=== PATIENT | male | born 1985 ===

== ENCOUNTER 2018-04-18 20:59 | Emergency (ER) | payer BC ==
--- NOTE | 2018-04-18 21:37 | C.PDOC ---
History Of Present Illness 33 year old male presents to the ED c/o dull, aching, cramping abdominal pain and constipation that started this morning. Patient reports eating some food in excess last night. Patient rates his pain at 4/10. Patient denies fever, chills , nausea, vomit, diarrhea, back pain. Time Seen by Provider: 04/18/18 21:37 Chief Complaint (Nursing): Abdominal Pain History Per: Patient History/Exam Limitations: no limitations Onset/Duration Of Symptoms: Hrs Current Symptoms Are (Timing): Still Present Context: Food Severity: Mild Pain Scale Rating Of: 4 Location Of Pain/Discomfort: Diffuse Radiation Of Pain To:: None Quality Of Discomfort: Dull, Aching, Cramping Associated Symptoms: Constipation. denies: Fever, Chills, Nausea, Vomiting, Diarrhea Alleviating Factors: None Recent travel outside of the [place]: No Additional History Per: Patient Past Medical History Reviewed: Historical Data, Nursing Documentation, Vital Signs Vital Signs: Last Vital Signs Temp 98.4 F 04/18/18 23:33 Pulse 62 04/18/18 23:33 Resp 17 04/18/18 23:33 BP 136/89 04/18/18 23:33 Pulse Ox 98 04/18/18 23:57 - Medical History PMH: Sleep Apnea Surgical History: No Surg Hx Family History: States: No Known Family Hx - Social History Hx Alcohol Use: No Hx Substance Use: No Review Of Systems Constitutional: Negative for: Fever, Chills Cardiovascular: Negative for: Chest Pain Respiratory: Negative for: Shortness of Breath Gastrointestinal: Positive for: Abdominal Pain, Constipation. Negative for: Nausea, Vomiting, Diarrhea Musculoskeletal: Negative for: Back Pain Neurological: Negative for: Weakness, Numbness Physical Exam - Physical Exam Appears: Non-toxic, No Acute Distress Skin: Warm, Dry Head: Normacephalic Eye(s): bilateral: Normal Inspection Oral Mucosa: Moist Neck: Supple Chest: Symmetrical Cardiovascular: Rhythm Regular Respiratory: No Rales, No Rhonchi, No Wheezing Gastrointestinal/Abdominal: Soft, Distention, No Guarding, No Rebound, Other ( tympanic to percussion ) Back: Normal Inspection Extremity: No Tenderness, No Swelling Extremity: Bilateral: Atraumatic, Normal Color And Temperature, Normal ROM Neurological/Psych: Oriented x3, Normal Speech Gait: Steady ED Course And Treatment - Laboratory Results Result Diagrams: 04/18/18 21:53 04/18/18 21:53 O2 Sat by Pulse Oximetry: 98 (ON RA) Pulse Ox Interpretation: Normal - CT Scan/US CT abd/pelvis Other Rad Studies (CT/US): Read By Radiologist, Radiology Report Reviewed CT/US Interpretation: FINDINGS: The liver, spleen, pancreas, kidneys, gallbladder are normal. The bowel appears normal. The base of the appendix is seen on coronal image 45 axial image 115. It is not well seen distally. No secondary signs of appendicitis. In the right pelvis, medial to the right iliac vessels/right psoas muscle, is a rounded 3 x 4 cm cystic. structure. It is bordered by the sigmoid colon anteriorly and the sacrum posteriorly. There is a small. amount of haziness in the adjacent fat. Possibilities include freestanding cyst, mesenteric cyst,. infected cyst, abscess, congenital cyst. Undescended testicle would be a consideration although. superiormost portion of a normal right testicle is identified within the scrotum. Although the cystic. structure is in close proximity to the iliac vessels and sacrum, it appears to be from the. adjacent structures by thin plane of fat making vascular and neurologic origin unlikely. IMPRESSION: Cystic structure within the right pelvis as discussed above. Thank you for allowing us to participate in the care of your patient. Dictated and Authenticated by: Stefanie Prescott MD. 04/18/2018 11:55 PM Eastern Time ([place] & [place]) Progress Note: Plan: - Labs. - IV fluids. - Toradol 30 mg IVP. - UA Reevaluation Time: 00:28 Reassessment Condition: Improved Disposition Counseled Patient/Family Regarding: Studies Performed, Diagnosis, Need For Followup, Rx Given - Disposition Referrals: [facility] [Outside] [facility] [Outside] Disposition: HOME/ ROUTINE Disposition Time: 21:37 Condition: FAIR Prescriptions: Polyethylene Glycol 3350 [Miralax] 17 gm PO DAILY #270 ml Instructions: Constipation, Child (DC) Forms: [facility] (Luxembourgish) - Clinical Impression Clinical Impression: Abdominal pain, Constipation - Scribe Statement The provider has reviewed the documentation as recorded by the Scribe Ashok Lee All medical record entries made by the Scribe were at my direction and personally dictated by me. I have reviewed the chart and agree that the record accurately reflects my personal performance of the history, physical exam, medical decision making, and the department course for this patient. I have also personally directed, reviewed, and agree with the discharge instructions and disposition.
[2018-04-18] MEDS ORDERED: Sodium Chloride 0.9% 1,000 ML IV ONE (21:42)
[2018-04-18 21:56] LABS: BASO # 0.1 K/uL (0.0-0.2); BASO % 0.5 % (0.0-2.0); EOS # 0.2 K/uL (0.0-0.7); EOS % 1.4 % (0.0-4.0); HEMOGLOBIN 15.3 g/dL (12.0-18.0); LYMPH # 3.5 K/uL (1.0-4.3); LYMPH % 26.1 % (20.0-40.0); MEAN CELL VOLUME 78.7 fL (80.0-94.0); MEAN CORPUSCULAR HEMOGLOBIN 26.3 pg (27.0-31.0); MEAN CORPUSCULAR HGB CONC 33.4 g/dL (33.0-37.0); MEAN PLATELET VOLUME 9.1 fL (7.2-11.7); MONO % 7.1 % (0.0-10.0); NEUT # 8.7 K/uL (1.8-7.0); NEUT % 64.9 % (50.0-75.0); RBC 5.83 Mil/uL (4.40-5.90); RED CELL DISTRIBUTION WIDTH 13.7 % (11.5-14.5); WHITE BLOOD COUNT 13.4 K/uL (4.8-10.8)
[2018-04-18 21:58] LABS: URINE BILIRUBIN NEGATIVE (NEGATIVE); URINE BLOOD NEGATIVE (NEGATIVE); URINE CLARITY Clear (Clear); URINE COLOR Straw (YELLOW); URINE GLUCOSE (UA) NORMAL (Normal); URINE LEUKOCYTE ESTERASE NEG Leu/uL (Negative); URINE PROTEIN NEGATIVE (NEGATIVE); URINE UROBILINOGEN NORMAL mg/dL (0.2-1.0)
[2018-04-18 22:04] LABS: INR 1.2; PROTHROMBIN TIME 13.5 SECONDS (9.7-12.2)
[2018-04-18 22:08] LABS: ALB/GLOB RATIO 1.6 (1.0-2.1); ALT/SGPT 43 U/L (21-72); AST/SGOT 30 U/L (17-59); BLOOD UREA NITROGEN 8 mg/dL (9-20); GFR AFRICAN-AMERICAN > 60; GFR NON-AFRICAN AMERICAN > 60; LIPASE 59 U/L (23-300)
[2018-04-18] MEDS ORDERED: Iodixanol 320 MG/ML 100 ML BOTTLE IV ONE (22:33)
[2018-04-18 23:34] VITALS: BP 136/89; PULSE 62; RESP 17; TEMP 98.4
[2018-04-18 23:57] VITALS: O2SAT 98
--- NOTE | 2018-04-19 09:01 | CT ---
CT abdomen and pelvis History: Diffuse abdominal pain. Comparison: None available. Technique: Multiple contiguous axial images were performed through the abdomen and pelvis with the use of intravenous contrast. Subsequently, sagittal and coronal reformatted images were obtained. This CT exam was performed using one or more of the following dose reduction techniques: Automated exposure control, adjustment of the mA and/or kV according to patient size, and/or use of iterative reconstruction technique. Findings: Lung bases are clear. No pleural or pericardial effusion. Mild fatty infiltration of the liver. Contracted gallbladder. Spleen is preserved. Adrenal glands are preserved. Pancreas is preserved. Upper abdominal bowel is preserved. Right kidney: No calculi or hydronephrosis. Left Kidney: No calculi or hydronephrosis. Urinary bladder is grossly preserved. Prostate is preserved. Underdistended sigmoid colon. Fecal retention in the colon. Under distended and or mildly thickened proximal and mid transverse colon. Clinical correlation. Appendix not well visualized. In the right pelvis, medial to the right iliac vessels/right soleus muscle, there is a 4.5 x 3.0 centimeter ovoid cystic structure/lesion. It is bordered by the sigmoid colon anteriorly and the sacrum posteriorly. Small amount of haziness in the adjacent fat. Possibilities include a freestanding cyst versus mesenteric cyst versus infected cyst versus abscess versus congenital cyst versus additional etiology. Undescended testicle would be consideration although superior most portion of a normal right testicle is identified within the scrotum. Additional etiologies not excluded. Clinical correlation. Impression: In the right pelvis, medial to the right iliac vessels/right soleus muscle, there is a 4.5 x 3.0 centimeter ovoid cystic structure/lesion. It is bordered by the sigmoid colon anteriorly and the sacrum posteriorly. Small amount of haziness in the adjacent fat. Possibilities include a freestanding cyst versus mesenteric cyst versus infected cyst versus abscess versus congenital cyst versus additional etiology. Undescended testicle would be consideration although superior most portion of a normal right testicle is identified within the scrotum. Additional etiologies not excluded. Clinical correlation. Additional findings as above. These findings were preliminarily reported at 11:55 p.m. on 04/18/[address] Stefanie Prescott from [employer].
== END 2018-04-19 00:51 | disposition home or self-care (01) ==
LOC: C.ER 20:59
DX: R10.9 Unspecified abdominal pain (principal); K59.00 Constipation, unspecified
CPT/HCPCS: 74177; 80053; 81001; 83690; 85025; 85610; 85730; 96374; 99285; J1885; J7030; Q9967

== ENCOUNTER 2018-04-21 10:18 | Inpatient (IN) | payer BC ==
[2018-04-21 10:26] VITALS: BMI 26.2
[2018-04-21] MEDS ORDERED: Sodium Chloride 0.9% 1,000 ML IV ONE ×2 (10:32→22:00)
--- NOTE | 2018-04-21 10:34 | C.PDOC ---
History Of Present Illness 33 y/o male presents to ED sent by Dr. Azevedo for further evaluation of right sided abdominal pain and possible surgery. Patient states he has been taking Motrin for pain with mild relief and reports diffuse body rash. Patient denies fever, nausea, vomiting, diarrhea or any other complaints at this time. Time Seen by Provider: 04/21/18 10:32 Chief Complaint (Nursing): Abdominal Pain History Per: Patient History/Exam Limitations: no limitations Onset/Duration Of Symptoms: Days Current Symptoms Are (Timing): Still Present Location Of Pain/Discomfort: RLQ Past Medical History Reviewed: Historical Data, Nursing Documentation, Vital Signs Vital Signs: Last Vital Signs Temp 98.5 F 04/21/18 15:45 Pulse 76 04/21/18 15:45 Resp 18 04/21/18 15:45 BP 147/91 H 04/21/18 15:45 Pulse Ox 98 04/21/18 15:45 - Medical History PMH: Sleep Apnea Surgical History: No Surg Hx Family History: States: No Known Family Hx - Social History Hx Alcohol Use: No Hx Substance Use: No - Immunization History Hx Tetanus Toxoid Vaccination: No Hx Influenza Vaccination: No Hx Pneumococcal Vaccination: No Review Of Systems Constitutional: Negative for: Fever, Chills Gastrointestinal: Positive for: Abdominal Pain. Negative for: Nausea, Vomiting , Diarrhea Genitourinary: Negative for: Dysuria, Hematuria Skin: Negative for: Rash Physical Exam - Physical Exam Appears: Non-toxic, No Acute Distress Skin: Warm, Dry, No Rash Head: Atraumatic, Normacephalic Eye(s): bilateral: Normal Inspection Oral Mucosa: Moist Neck: Normal ROM, Supple Cardiovascular: Rhythm Regular Respiratory: Normal Breath Sounds, No Rales, No Rhonchi, No Wheezing Gastrointestinal/Abdominal: Soft, Tenderness (RLQ), No Guarding, No Rebound Back: No CVA Tenderness, No Paraspinal Tenderness Neurological/Psych: Oriented x3, Normal Speech ED Course And Treatment - Laboratory Results Result Diagrams: 04/21/18 10:57 04/21/18 10:57 Lab Interpretation: Normal ECG: Interpreted By Me ECG Rhythm: Sinus Rhythm ECG Interpretation: Normal Rate From EC O2 Sat by Pulse Oximetry: 100 (RA) Pulse Ox Interpretation: Normal Progress Note: Treated with IVF NSS. Patient treated with benadryl 25 mg IV for hives. Case discussed with vice president for philanthropy who request admission Reassessment Condition: Improved - Physician Consult Information Physician Contacted: Cameron Azevedo Outcome Of Conversation: admit Disposition Discussed With DrJad: Cameron Azevedo Doctor Will See Patient In The: Hospital - Disposition Disposition: HOSPITALIZED Disposition Time: 12:00 Condition: STABLE - POA Present On Arrival: None - Clinical Impression Clinical Impression: Abdominal pain - PA / [employer] / Resident Statement MD/DO has reviewed & agrees with the documentation as recorded. - Scribe Statement The provider has reviewed the documentation as recorded by the Scribe Kellen Carrillo All medical record entries made by the Karie were at my direction and personally dictated by me. I have reviewed the chart and agree that the record accurately reflects my personal performance of the history, physical exam, medical decision making, and the department course for this patient. I have also personally directed, reviewed, and agree with the discharge instructions and disposition. Decision To Admit - Pt Status Changed To: Hospital Disposition Of: Inpatient - Admit Certification Admit to Inpatient:: After my assessment, the patient will require hospitalization for at least two midnights. This is because of the severity of symptoms shown, intensity of services needed, and/or the medical risk in this patient being treated as an outpatient. - InPatient: Physician Admission Certification:: Abdominal Pain - . Bed Request Type: Regular Admitting Physician: Cameron Azevedo Patient Diagnosis: Abdominal pain
[2018-04-21] MEDS ORDERED: Sodium Chloride 0.9% 1,000 ML ONE (11:03)
[2018-04-21 11:05] LABS: BASO % 0.5 % (0.0-2.0); EOS # 0.3 K/uL (0.0-0.7); EOS % 3.1 % (0.0-4.0); HEMOGLOBIN 15.4 g/dL (12.0-18.0); LYMPH # 1.7 K/uL (1.0-4.3); LYMPH % 18.2 % (20.0-40.0); MEAN CELL VOLUME 79.6 fL (80.0-94.0); MEAN CORPUSCULAR HEMOGLOBIN 26.6 pg (27.0-31.0); MEAN CORPUSCULAR HGB CONC 33.4 g/dL (33.0-37.0); MONO # 0.7 K/uL (0.0-0.8); MONO % 6.9 % (0.0-10.0); NEUT # 6.8 K/uL (1.8-7.0); NEUT % 71.3 % (50.0-75.0); NRBC % 0.1 % (0.0-2.0); RBC 5.78 Mil/uL (4.40-5.90); RED CELL DISTRIBUTION WIDTH 13.7 % (11.5-14.5); WHITE BLOOD COUNT 9.5 K/uL (4.8-10.8)
[2018-04-21 11:08] LABS: URINE BILIRUBIN NEGATIVE (NEGATIVE); URINE BLOOD NEGATIVE (NEGATIVE); URINE CLARITY Clear (Clear); URINE COLOR Yellow (YELLOW); URINE GLUCOSE (UA) NORMAL (Normal); URINE LEUKOCYTE ESTERASE NEG Leu/uL (Negative); URINE PROTEIN NEGATIVE (NEGATIVE); URINE UROBILINOGEN NORMAL mg/dL (0.2-1.0)
--- NOTE | 2018-04-21 11:12 | RAD ---
HISTORY: SOB COMPARISON: No prior. TECHNIQUE: Chest PA and lateral FINDINGS: LUNGS: No active pulmonary disease. PLEURA: No significant pleural effusion identified. No pneumothorax apparent. CARDIOVASCULAR: Normal. OSSEOUS STRUCTURES: No significant abnormalities. VISUALIZED UPPER ABDOMEN: Normal. OTHER FINDINGS: None. IMPRESSION: No active disease.
[2018-04-21 11:14] LABS: INR 1.3; PROTHROMBIN TIME 13.7 SECONDS (9.7-12.2)
[2018-04-21 11:18] LABS: ALB/GLOB RATIO 1.5 (1.0-2.1); ALBUMIN 4.8 g/dL (3.5-5.0); ALT/SGPT 33 U/L (21-72); AST/SGOT 22 U/L (17-59); BLOOD UREA NITROGEN 10 mg/dL (9-20); CALCIUM 9.7 mg/dl (8.6-10.4); GFR AFRICAN-AMERICAN > 60; GFR NON-AFRICAN AMERICAN > 60
[2018-04-21] MEDS ORDERED: DiphenhydrAMINE 50 mg/ml Inj IVP STA (11:39)
[2018-04-21] MEDS ORDERED: DiphenhydrAMINE 50 mg/ml Inj ONE ×2 (12:15→18:49)
[2018-04-21] MEDS ORDERED: Sodium Chloride 0.9% 1,000 ML IV SCH (14:00)
--- NOTE | 2018-04-21 16:58 | CP.PCM.HP ---
<Shannen Sweeney - Last Filed: 04/21/18 16:54> History of Present Illness - History of Present Illness History of Present Illness: H & P 33 M w PMH of sleep apnea came with RLQ pain. He reports pain started on thursday and came to ED. Pain was sudden onset and localized. Denies fever, nausea , vomiting, diarrhea, CP, SOB, change in stool caliber, Sick contact, recent travel, hematochezia, hematemesis, dysuria, hematura. CT was taken and it showed possible mesenteric cyst or abscess on RLQ. Pt reports constipation and reports taking naproxen for pain. Didn't relieve pain. Pain was worsen on Thursday. Pt went to see his PMD and recommended to see Dr. Azevedo. Today pain became more intense and frequent and came back to ED. Pt is consented for OR for diagnostic laparoscopy. PMH sleep apnea PSH none SS lives with family, denies smoking, etoh or drug abuse. Present on Admission - Present on Admission Any Indicators Present on Admission: No Review of Systems - Review of Systems Review of Systems: See HPI Past Patient History - Past Medical History & Family History Past Medical History?: Yes - Past Social History Smoking Status: Former Smoker - CARDIAC Hx Cardiac Disorders: No - PULMONARY Hx Sleep Apnea: Yes - NEUROLOGICAL Hx Neurological Disorder: No - HEENT Hx HEENT Problems: No - RENAL Hx Chronic Kidney Disease: No - ENDOCRINE/METABOLIC Hx Endocrine Disorders: No - HEMATOLOGICAL/ONCOLOGICAL Hx Blood Disorders: No - INTEGUMENTARY Hx Dermatological Problems: No - MUSCULOSKELETAL/RHEUMATOLOGICAL Hx Musculoskeletal Disorders: No Hx Falls: No - GASTROINTESTINAL Other/Comment: right sided Abdominal Pain possible cyst vs infected cyst vs abscess - GENITOURINARY/GYNECOLOGICAL Hx Genitourinary Disorders: No - PSYCHIATRIC Hx Psychophysiologic Disorder: No Hx Substance Use: No - SURGICAL HISTORY Hx Surgeries: No - ANESTHESIA Hx Anesthesia: No Meds Allergies/Adverse Reactions: Allergies Allergy/AdvReac Type Severity Reaction Status Date / Time No Known Allergies Allergy Verified 04/21/18 10:22 Physical Exam - Constitutional Appears: No Acute Distress - Head Exam Head Exam: ATRAUMATIC, NORMAL INSPECTION, NORMOCEPHALIC - Eye Exam Eye Exam: EOMI, Normal appearance, PERRL Pupil Exam: NORMAL ACCOMODATION, PERRL - ENT Exam ENT Exam: Mucous Membranes Moist, Normal Exam - Neck Exam Neck exam: Positive for: Normal Inspection - Respiratory Exam Respiratory Exam: NORMAL BREATHING PATTERN - Cardiovascular Exam Cardiovascular Exam: REGULAR RHYTHM. absent: Tachycardia - GI/Abdominal Exam GI & Abdominal Exam: Normal Bowel Sounds, Soft, Tenderness. absent: Distended, Firm, Guarding, Hernia, Mass, Organomegaly, Pulsatile Mass, Rebound, Rigid Additional comments: RLQ TTP - Exam Exam: NORMAL INSPECTION - Extremities Exam Extremities exam: Positive for: full ROM, normal inspection - Back Exam Back exam: NORMAL INSPECTION - Neurological Exam Neurological exam: Alert, CN II-XII Intact, Normal Gait, Oriented x3, Reflexes Normal - Psychiatric Exam Psychiatric exam: Normal Affect, Normal Mood - Skin Skin Exam: Dry, Intact, Normal Color, Warm Results - Vital Signs Recent Vital Signs: Last Vital Signs Temp 98.5 F 04/21/18 15:45 Pulse 76 04/21/18 15:45 Resp 18 04/21/18 15:45 BP 147/91 H 04/21/18 15:45 Pulse Ox 98 04/21/18 15:45 - Labs Result Diagrams: 04/21/18 10:57 04/21/18 10:57 Labs: Laboratory Results - last 24 hr 04/21/18 04/21/18 04/21/18 10:57 10:57 10:57 WBC 9.5 RBC 5.78 Hgb 15.4 Hct 46.0 MCV 79.6 L MCH 26.6 L MCHC 33.4 RDW 13.7 Plt Count 263 MPV 9.0 Neut % (Auto) 71.3 Lymph % (Auto) 18.2 L [place] % (Auto) 6.9 Eos % (Auto) 3.1 Baso % (Auto) 0.5 Neut # (Auto) 6.8 Lymph # (Auto) 1.7 [place] # (Auto) 0.7 Eos # (Auto) 0.3 Baso # (Auto) 0.0 PT 13.7 H INR 1.3 APTT 46 H Sodium 142 Potassium 4.0 Chloride 102 Carbon Dioxide 27 Anion Gap 17 BUN 10 Creatinine 1.0 Est GFR ( Amer) > 60 Est GFR (Non-Af Amer) > 60 Random Glucose 109 Calcium 9.7 Total Bilirubin 1.2 AST 22 ALT 33 Alkaline Phosphatase 78 Total Protein 8.0 Albumin 4.8 Globulin 3.2 Albumin/Globulin Ratio 1.5 Urine Color Urine Clarity Urine pH Ur Specific [place] Urine Protein Urine Glucose (UA) Urine Ketones Urine Blood Urine Nitrate Urine Bilirubin Urine Urobilinogen Ur Leukocyte Esterase Urine WBC (Auto) Blood Type Antibody Screen 04/21/18 04/21/18 10:57 10:57 WBC RBC Hgb Hct MCV MCH MCHC RDW Plt Count MPV Neut % (Auto) Lymph % (Auto) [place] % (Auto) Eos % (Auto) Baso % (Auto) Neut # (Auto) Lymph # (Auto) [place] # (Auto) Eos # (Auto) Baso # (Auto) PT INR APTT Sodium Potassium Chloride Carbon Dioxide Anion Gap BUN Creatinine Est GFR ( Amer) Est GFR (Non-Af Amer) Random Glucose Calcium Total Bilirubin AST ALT Alkaline Phosphatase Total Protein Albumin Globulin Albumin/Globulin Ratio Urine Color Yellow Urine Clarity Clear Urine pH 6.0 Ur Specific [place] 1.008 Urine Protein Negative Urine Glucose (UA) Normal Urine Ketones Negative Urine Blood Negative Urine Nitrate Negative Urine Bilirubin Negative Urine Urobilinogen Normal Ur Leukocyte Esterase Neg Urine WBC (Auto) < 1 Blood Type O POSITIVE Antibody Screen Negative Assessment & Plan - Assessment and Plan (Free Text) Assessment: RLQ and possible mesenteric cyst on CT -OR for diagnostic laparoscopy NPO IVF Pain control DW Dr. Azevedo <Cameron Azevedo - Last Filed: 04/25/18 20:06> Results - Vital Signs Recent Vital Signs: Last Vital Signs Temp 97.8 F 04/23/18 07:00 Pulse 75 04/23/18 07:00 Resp 20 04/23/18 07:00 BP 118/77 04/23/18 07:00 Pulse Ox 96 04/23/18 07:00 - Labs Result Diagrams: 04/23/18 06:19 04/23/18 06:19 Attending/Attestation - Attestation I have personally seen and examined this patient.: Yes I have fully participated in the care of the patient.: Yes I have reviewed all pertinent clinical information: Yes Notes (Text): Pt was seen and examined at bedside Agree with above note and assessment Pt with RLQ pain and tenderness Labs and radiology reviewed Ass: Infected pelvic cyst possible Appendicitis Plan : OR for Lap Exploration and Appendectomy Consent NPO, IVF C/W IV antibiotics c.w current mx Plan d.w pt in detail Risk and benefit explained in detail
[2018-04-21] MEDS ORDERED: ceFAZolin IV 1 gm in Dextrose 2 GM/100 ML BAG IVPB ONE (17:36)
[2018-04-21] MEDS ORDERED: Lidocaine/Epinephrine 1% 1:100000 10 ML IJ ONE (17:37)
[2018-04-21] MEDS ORDERED: Midazolam 2 MG/2 ML VIAL ONE (18:26)
[2018-04-21] MEDS ORDERED: Propofol 10 mg/ml Inj (20 ML) ONE (18:26)
[2018-04-21] MEDS ORDERED: Rocuronium 10 mg/ml (5 ml) ONE (18:49)
[2018-04-21] MEDS ORDERED: Lidocaine 4% (Laryng-O-Jet) Kit MM ONE (18:49)
[2018-04-21] MEDS ORDERED: HYDROmorphone 0.5 mg/0.5 ml ISec IVP PRN (20:56)
[2018-04-21] MEDS ORDERED: Lactated Ringer's 1,000 ML IV ONE ×2 (21:12)
--- NOTE | 2018-04-21 21:31 | PCM.SURG1 ---
Surgeon's Initial Post Op Note - Surgeon's Notes Surgeon: Dr. Azevedo Fiber Optic Splicer: Shannen Sweeney PGY2 Kaylynn Type of Anesthesia: General Endo, Local Anesthesia Administered By: Alida Pre-Operative Diagnosis: Pelvic mass Operative Findings: Pelvic abscess [id number] adjacent to R iliac artery Post-Operative Diagnosis: R pelvic abscess Operation Performed: Exploratory laparoscopy, appendectomy, Deroofing of the abcess cavity wall Specimen/Specimens Removed: abscess, abscess cavitary wall, Estimated Blood Loss: EBL {In ML}: 50 Drains Used: [place] Post-Op Condition: Good Date of Surgery/Procedure: 04/21/18 Time of Surgery/Procedure: 21:31
[2018-04-21] MEDS: Piperacill/Tazo 3.375gm in Dex 3.375 GM/50 ML BAG IVPB SCH ×2 (21:44→23:27)
--- NOTE | 2018-04-22 05:19 | CON ---
DATE: 04/21/2018 HISTORY OF PRESENT ILLNESS: The patient is seen on an emergency consultation basis at the request of Dr. Azevedo in the operating room at [facility] because of a pelvic cyst, and there was a concern that this may represent an aneurysm. I responded as soon as possible. The operative findings and the screens were reviewed with Dr. Azevedo. The CT and other imaging tests, that have been done, were also reviewed. Basically, it appears that there was a cyst in the pelvis. This does not appear to be part of the iliac artery or the iliac vein, as there is no contrast . The reports from the different radiologists interpreting the studies are also reviewed. PHYSICAL EXAMINATION: GENITOURINARY: The patient has a fairly well-defined right pelvic wall cyst. This was aspirated with the removal of sand-colored fluid which was sent for cytologic examination and for bacteriology. In addition, the cyst was then unroofed. Dr. Azevedo had already carefully dissected at the ureter and made it clear that there was no ureteral involvement. My impression is this is a pelvic cyst. It is not an aneurysm. It is not related to the vascular system as a main blood vessel. RECOMMENDATION: I exactly go with what Dr. Azevedo did. The other option of course would be an open invasion. , and I think it could be just as the plan to unroof it and drain this, so I agree with the recommendation as management if there is a long appendix right over the area and I think that this should be removed and this is reviewed with the staff. IMPRESSION: Pelvic cyst, nonvascular structure. The skin will be removed or unroofed as planned. I concur with the recommendations. Erick Deshpande Jr., MD
[2018-04-22] MEDS: Piperacill/Tazo 3.375gm in Dex 3.375 GM/50 ML BAG IVPB SCH ×3 (06:22→21:48)
[2018-04-22 07:10] LABS: BASO % 0.2 % (0.0-2.0); HEMOGLOBIN 14.5 g/dL (12.0-18.0); LYMPH % 9.2 % (20.0-40.0); MEAN CELL VOLUME 80.1 fL (80.0-94.0); MEAN CORPUSCULAR HEMOGLOBIN 26.9 pg (27.0-31.0); MEAN CORPUSCULAR HGB CONC 33.5 g/dL (33.0-37.0); MEAN PLATELET VOLUME 9.2 fL (7.2-11.7); MONO # 0.5 K/uL (0.0-0.8); MONO % 4.2 % (0.0-10.0); NEUT # 9.3 K/uL (1.8-7.0); NEUT % 86.4 % (50.0-75.0); PLATELET COUNT 280 K/uL (130-400); RED CELL DISTRIBUTION WIDTH 13.5 % (11.5-14.5); WHITE BLOOD COUNT 10.7 K/uL (4.8-10.8)
[2018-04-22 07:25] LABS: ALB/GLOB RATIO 1.6 (1.0-2.1); ALBUMIN 4.4 g/dL (3.5-5.0); ALT/SGPT 32 U/L (21-72); AST/SGOT 31 U/L (17-59); BLOOD UREA NITROGEN 12 mg/dL (9-20); CALCIUM 9.2 mg/dl (8.6-10.4); GFR AFRICAN-AMERICAN > 60; GFR NON-AFRICAN AMERICAN > 60
[2018-04-22 08:35] LABS: BANDS 6 % (0-2); LYMPHOCYTE 11 % (20-40); MONOCYTE 4 % (0-10); NEUTROPHIL 79 % (50-75); PLATELET ESTIMATE NORMAL (NORMAL); TOTAL CELLS COUNTED 100
[2018-04-22 08:36] LABS: OVALOCYTES SLIGHT
[2018-04-22] MEDS: Enoxaparin 30 mg Syringe SC SCH (09:13)
[2018-04-22] MEDS: HYDROmorphone 0.5 mg/0.5 ml ISec IVP PRN ×2 (13:10→20:14)
--- NOTE | 2018-04-22 16:46 | CP.PCM.PN ---
<Josiah Wolff - Last Filed: 04/22/18 16:43> Subjective - Date & Time of Evaluation Date of Evaluation: 04/22/18 Time of Evaluation: 16:43 - Subjective Subjective: General Surgery Progress Note for Dr. Azevedo This 33M was seen and examined this Am at bedside. Reporting abdominal pain when he gets out of bed. Requesting another day due to pain control. Passing gas no BM. Denies chest pain or SOB. Objective - Vital Signs/Intake and Output Vital Signs (last 24 hours): Temp Pulse Resp BP Pulse Ox 98.1 F 84 18 121/76 98 04/22/18 15:30 04/22/18 15:30 04/22/18 15:30 04/22/18 15:30 04/22/18 15:30 Intake and Output: 04/22/18 04/22/18 06:59 18:59 Intake Total 480 Output Total 685 Balance -685 480 - Medications Medications: Current Medications Acetaminophen (Tylenol 325mg Tab) 975 mg PO Q6 PRN PRN Reason: Fever >100.4 F Enoxaparin Sodium (Lovenox) 30 mg SC DAILY [facility] Last Admin: 04/22/18 09:13 Dose: 30 mg Hydromorphone HCl (Dilaudid) 0.5 mg IVP Q4H PRN PRN Reason: Pain, moderate (4-7) Last Admin: 04/22/18 13:10 Dose: 0.5 mg Piperacillin Sod/Tazobactam Sod (Zosyn 3.375 Gm Iv Premix) 3.375 gm in 50 mls @ 200 mls/hr IVPB Q8H LIS[place]TE PRN Reason: Protocol Last Admin: 04/22/18 13:02 Dose: 200 mls/hr Ondansetron HCl (Zofran Inj) 4 mg IVP Q4 PRN PRN Reason: Nausea/Vomiting Last Admin: 04/22/18 13:10 Dose: 4 mg - Labs Labs: 04/22/18 06:53 04/22/18 06:53 PT 13.7 SECONDS (9.7-12.2) H 04/21/18 10:57 INR 1.3 04/21/18 10:57 APTT 46 SECONDS (21-34) H 04/21/18 10:57 - Constitutional Appears: Non-toxic, No Acute Distress - Head Exam Head Exam: ATRAUMATIC, NORMOCEPHALIC - Eye Exam Eye Exam: EOMI - ENT Exam ENT Exam: Mucous Membranes Moist - Respiratory Exam Respiratory Exam: NORMAL BREATHING PATTERN - Cardiovascular Exam Cardiovascular Exam: +S1, +S2 - GI/Abdominal Exam GI & Abdominal Exam: Soft. absent: Distended, Firm, Guarding, Rigid, Tenderness Additional comments: Dressing clean dry and intact - Neurological Exam Neurological Exam: Alert, Awake - Psychiatric Exam Psychiatric exam: Normal Affect, Normal Mood - Skin Skin Exam: Dry, Intact Assessment and Plan - Assessment and Plan (Free Text) Assessment: 33M s/o lap unroofing of pelvic abscess and appendectomy Plan: d/c rodriguez CLD Continue ABX Continue DVT ppx Will re-examine further recs per Dr. Roberto Carlos Wolff PGY2 <Cameron Azevedo - Last Filed: 04/25/18 20:16> Objective - Vital Signs/Intake and Output Vital Signs (last 24 hours): Temp Pulse Resp BP Pulse Ox 97.8 F 75 20 118/77 96 04/23/18 07:00 04/23/18 07:00 04/23/18 07:00 04/23/18 07:00 04/23/18 07:00 - Labs Labs: 04/23/18 06:19 04/23/18 06:19 PT 13.7 SECONDS (9.7-12.2) H 04/21/18 10:57 INR 1.3 04/21/18 10:57 APTT 46 SECONDS (21-34) H 04/21/18 10:57 Attending/Attestation - Attestation I have personally seen and examined this patient.: Yes I have fully participated in the care of the patient.: Yes I have reviewed all pertinent clinical information, including history, physical exam and plan: Yes Notes (Text): Pt was seen and examined at bedside Agree with above note and assessment Pt is improving clinically Reg diet Enema prn C/W IV antibiotics c.w current mx Plan d.w pt in detail Risk and benefit explained in detail
[2018-04-23 01:43] VITALS: PULSE 75; RESP 20
--- NOTE | 2018-04-23 04:58 | OP ---
PROCEDURE DATE: 04/21/2018 PREOPERATIVE DIAGNOSES: 1. Lower abdominal pain. 2. Large pelvic infected cyst. 3. Possible appendicitis. POSTOPERATIVE DIAGNOSES: 1. Infected extraperitoneal large pelvic cyst. 2. Enlarged and long appendix. PROCEDURES DONE: 1. Laparoscopic drainage of pelvic abscess. 2. Laparoscopic pelvic cystectomy, partial. 3. Laparoscopic appendectomy. 4. Laparoscopic extensive lysis of adhesion and enterolysis. 5. Laparoscopic Ureterolysis and mobilization of colon SURGEON: Cameron Azevedo MD ARM MAKER: TAMARA Graves SECOND ARM MAKER: Chacha PGY-2 resident ANESTHESIA: General endotracheal tube anesthesia. ESTIMATED BLOOD LOSS: Around 20 mL. DRAIN: None. PATHOLOGY: 1. The pus was sent for the culture and sensitivity. 2. The cyst wall was also sent for the permanent pathology. 3. Appendix was sent for the permanent pathology. COMPLICATIONS: None. INTRAOPERATIVE FINDINGS: The patient had a large pelvic cyst that was attached to the left iliac vein as well as the left pelvic wall, and the patient also had enlarged and long appendix. DESCRIPTION OF PROCEDURE: On intraoperative steps, this is a 33-year-old male who was diagnosed with infected pelvic cyst with possible appendicitis. The patient had severe abdominal pain. The patient was consented for laparoscopic pelvic exploration with possible appendectomy and possible bowel resection. Then, the patient was brought to the OR, placed supine on the operating room table. After induction of the anesthesia, abdomen was prepped and draped in the usual sterile fashion, and the supraumbilical transverse incision was made after incising skin, subcutaneous tissue and the fascia. The Enrique port was placed, pneumo was created. A 12-mm port was placed in the left lower quadrant, and a 5-mm port was placed in the suprapubic region. After that, grasper and dissector were introduced, and the pelvic exploration was done. The patient had extensive adhesion in the pelvis, and first laparoscopic extensive lysis of adhesion was done. The omentum was firmly adhesed to the pelvic cyst wall, and that was also lysed. After that, the large pelvic cyst was identified in the pelvis. The peritoneal dissection was done to dissect the ureter from the pelvic cyst. Mobilization of right colon was done to identify normal analtomay The appendix was also thickened and enlarged and extremely long. After proper exploration, due to the connectivity of the cyst to the right iliac vein, the intraoperative vascular consult was called by Dr. Deshpande, and Dr. Deshpande came to the operating room and advised about the cyst. There was no apparent aneurysm identified. Now, the cyst was aspirated, and the pus was sent for the culture and sensitivity as well as the pus sent for the tumor markers. The cyst wall was excised and almost 30% to 40% of cyst wall that was attached to the right iliac vein was left. The rest of the cyst was sent off the table for pathology. After proper hemostasis of the cyst wall area, now the mesoappendix was resected. The appendix was resected with the MAURICIO, and it was sent off the table for pathology. There was no apparent complication. Due to the extensive nature of the disease, this took approximately 60-80 minutes extra for the routine procedure. All the ports were taken out under vision, pneumo was deflated. The umbilical port site was closed in 2 layers, the fascia with 0 Vicryl interrupted sutures, skin with 4-0 Monocryl, and dry sterile dressing was applied. The patient tolerated the procedure well. Count of instruments and gauze was correct. There was no apparent complication. The patient was extubated in the OR, sent to the postanesthesia care unit in stable condition. Cameron Azevedo MD MTDD
[2018-04-23 06:27] LABS: MEAN CELL VOLUME 80.3 fL (80.0-94.0); MEAN CORPUSCULAR HEMOGLOBIN 27.2 pg (27.0-31.0); MEAN CORPUSCULAR HGB CONC 33.8 g/dL (33.0-37.0); MEAN PLATELET VOLUME 9.1 fL (7.2-11.7); RBC 4.77 Mil/uL (4.40-5.90); RED CELL DISTRIBUTION WIDTH 13.9 % (11.5-14.5); WHITE BLOOD COUNT 8.2 K/uL (4.8-10.8)
[2018-04-23] MEDS: Piperacill/Tazo 3.375gm in Dex 3.375 GM/50 ML BAG IVPB SCH (06:37)
[2018-04-23] MEDS: HYDROmorphone 0.5 mg/0.5 ml ISec IVP PRN (06:40)
[2018-04-23 06:44] LABS: BLOOD UREA NITROGEN 12 mg/dL (9-20); CALCIUM 8.6 mg/dl (8.6-10.4); GFR AFRICAN-AMERICAN > 60; GFR NON-AFRICAN AMERICAN > 60
[2018-04-23 07:44] VITALS: BP 118/77; TEMP 97.8; O2SAT 96
--- NOTE | 2018-04-23 09:56 | CP.PCM.DIS ---
Provider - Provider Date of Admission: 04/21/18 11:38 Attending physician: Cameron Azevedo MD Time Spent in preparation of Discharge (in minutes): 45 Diagnosis - Discharge Diagnosis (1) Abscess Status: Resolved Hospital Course - Lab Results Lab Results: Most Recent Lab Values WBC 8.2 K/uL (4.8-10.8) 04/23/18 06:19 RBC 4.77 Mil/uL (4.40-5.90) 04/23/18 06:19 Hgb 13.0 g/dL (12.0-18.0) 04/23/18 06:19 Hct 38.3 % (35.0-51.0) 04/23/18 06:19 MCV 80.3 fL (80.0-94.0) 04/23/18 06:19 MCH 27.2 pg (27.0-31.0) 04/23/18 06:19 MCHC 33.8 g/dL (33.0-37.0) 04/23/18 06:19 RDW 13.9 % (11.5-14.5) 04/23/18 06:19 Plt Count 241 K/uL (130-400) 04/23/18 06:19 MPV 9.1 fL (7.2-11.7) 04/23/18 06:19 Neut % (Auto) 86.4 % (50.0-75.0) H 04/22/18 06:53 Lymph % (Auto) 9.2 % (20.0-40.0) L 04/22/18 06:53 [place] % (Auto) 4.2 % (0.0-10.0) 04/22/18 06:53 Eos % (Auto) 0.0 % (0.0-4.0) 04/22/18 06:53 Baso % (Auto) 0.2 % (0.0-2.0) 04/22/18 06:53 Neut # (Auto) 9.3 K/uL (1.8-7.0) H 04/22/18 06:53 Lymph # (Auto) 1.0 K/uL (1.0-4.3) 04/22/18 06:53 [place] # (Auto) 0.5 K/uL (0.0-0.8) 04/22/18 06:53 Eos # (Auto) 0.0 K/uL (0.0-0.7) 04/22/18 06:53 Baso # (Auto) 0.0 K/uL (0.0-0.2) 04/22/18 06:53 Neutrophils % (Manual) 79 % (50-75) H 04/22/18 06:53 Band Neutrophils % 6 % (0-2) H 04/22/18 06:53 Lymphocytes % (Manual) 11 % (20-40) L 04/22/18 06:53 Monocytes % (Manual) 4 % (0-10) 04/22/18 06:53 Platelet Estimate Normal (NORMAL) 04/22/18 06:53 Ovalocytes Slight 04/22/18 06:53 PT 13.7 SECONDS (9.7-12.2) H 04/21/18 10:57 INR 1.3 04/21/18 10:57 APTT 46 SECONDS (21-34) H 04/21/18 10:57 Sodium 142 mmol/L (132-148) 04/23/18 06:19 Potassium 3.8 mmol/L (3.6-5.2) 04/23/18 06:19 Chloride 104 mmol/L (98-107) 04/23/18 06:19 Carbon Dioxide 28 mmol/L (22-30) 04/23/18 06:19 Anion Gap 14 (10-20) 04/23/18 06:19 BUN 12 mg/dL (9-20) 04/23/18 06:19 Creatinine 0.9 mg/dL (0.8-1.5) 04/23/18 06:19 Est GFR ( Amer) > 60 04/23/18 06:19 Est GFR (Non-Af Amer) > 60 04/23/18 06:19 Random Glucose 113 mg/dL (75-110) H 04/23/18 06:19 Calcium 8.6 mg/dl (8.6-10.4) 04/23/18 06:19 Total Bilirubin 0.9 mg/dL (0.2-1.3) 04/22/18 06:53 AST 31 U/L (17-59) 04/22/18 06:53 ALT 32 U/L (21-72) 06/28/18 06:53 Alkaline Phosphatase 55 U/L (38-126) 04/22/18 06:53 Total Protein 7.1 g/dL (6.3-8.3) 04/22/18 06:53 Albumin 4.4 g/dL (3.5-5.0) 04/22/18 06:53 Globulin 2.7 gm/dL (2.2-3.9) 04/22/18 06:53 Albumin/Globulin Ratio 1.6 (1.0-2.1) 04/22/18 06:53 Urine Color Yellow (YELLOW) 04/21/18 10:57 Urine Clarity Clear (Clear) 04/21/18 10:57 Urine pH 6.0 (5.0-8.0) 04/21/18 10:57 Ur Specific [place] 1.008 (1.003-1.030) 04/21/18 10:57 Urine Protein Negative mg/dL (NEGATIVE) 04/21/18 10:57 Urine Glucose (UA) Normal mg/dL (Normal) 04/21/18 10:57 Urine Ketones Negative mg/dL (NEGATIVE) 04/21/18 10:57 Urine Blood Negative (NEGATIVE) 04/21/18 10:57 Urine Nitrate Negative (NEGATIVE) 04/21/18 10:57 Urine Bilirubin Negative (NEGATIVE) 04/21/18 10:57 Urine Urobilinogen Normal mg/dL (0.2-1.0) 04/21/18 10:57 Ur Leukocyte Esterase Neg Rell/uL (Negative) 04/21/18 10:57 Urine WBC (Auto) < 1 /hpf (0-5) 04/21/18 10:57 Blood Type O POSITIVE 04/21/18 10:57 Antibody Screen Negative 04/21/18 10:57 - Hospital Course Hospital Course: This 33M was admitted on 04/21/18 for abdominal pain, he was found to have a pelvic abscess and was taken to the OR. The abscess was unroofed and the appendix was removed due to its proximity to the pathology and a drain was left. He had an uneventful recover. He is tolerating diet and he drain output is serosanguinous without signs of infection. Patients vitals and labs are normal and he is clear for discharge. Discharge Exam - Head Exam Head Exam: ATRAUMATIC, NORMOCEPHALIC - Eye Exam Eye Exam: EOMI, Normal appearance - Respiratory Exam Respiratory Exam: NORMAL BREATHING PATTERN, UNREMARKABLE - Cardiovascular Exam Cardiovascular Exam: +S1, +S2 - GI/Abdominal Exam GI & Abdominal Exam: Soft. absent: Distended, Firm, Guarding, Hernia, Rigid Additional comments: Appropriately tender, dressings clean dry and intact. - Neurological Exam Neurological exam: Alert, Oriented x3 - Psychiatric Exam Psychiatric exam: Normal Mood - Skin Skin Exam: Dry, Intact Discharge Plan - Discharge Medications Prescriptions: levoFLOXacin [Levaquin] 500 mg PO DAILY #7 tab oxyCODONE/Acetaminophen [Percocet 5/325 mg Tab] 1 ea PO Q6 #20 tab - Follow Up Plan Condition: STABLE Disposition: HOME/ ROUTINE Patient education suggested?: Yes Instructions: Acute Abdominal Pain (DC), Acute Abdominal Pain (GEN), Constipation (DC), Constipation (GEN), Abscess (GEN) Additional Instructions: YOu may remove dressings in five days, underneath there is surgical tape. Do not remove the surgical tape it will fall off on its own. After day 5 you can sponge bath do no soak the wounds. Dr. Azevedo will tell you when it is ok to shower at office visit. Do not life over 20lbs for 4 weeks and nothing over 40 for weeks 4-8. If you develop new or concerning symptoms call Dr. Azevedo or your primary care provider or go to the emergency department.
[2018-04-23] MEDS: Enoxaparin 30 mg Syringe SC SCH (10:12)
== END 2018-04-23 12:56 | disposition home or self-care (01) | DRG 337 ==
LOC: C.ER 10:18 → C.9E 11:38 → C.6T 13:54
PROVIDERS: ADMIT Surgery Surgical Critical Care; ATTEND Surgery Surgical Critical Care
PROC: 0DNW4ZZ Release Peritoneum, Percutaneous Endoscopic Approach (ICD-10-PCS; 2018-04-21)
PROC: 0DTJ4ZZ Resection of Appendix, Percutaneous Endoscopic Approach (ICD-10-PCS; 2018-04-21)
PROC: 0DBW4ZZ Excision of Peritoneum, Percutaneous Endoscopic Approach (ICD-10-PCS; 2018-04-21)
PROC: 0W9J4ZX Drainage of Pelvic Cavity, Percutaneous Endoscopic Approach, Diagnostic (ICD-10-PCS; principal; 2018-04-21 13:00)
DX: K65.1 Peritoneal abscess (principal); K66.8 Other specified disorders of peritoneum; K37 Unspecified appendicitis; G47.30 Sleep apnea, unspecified; Z87.891 Personal history of nicotine dependence